=== PATIENT | female | born 1995 ===

== ENCOUNTER 2019-04-18 10:19 | Emergency (ER) | payer OTHER ==
[~2019-04-18] VITALS: Ht 170.2 cm; Wt 55.3 kg
== END 2019-04-18 12:12 | disposition home or self-care (01) ==
LOC: ER 10:19
DX: S71.122A Laceration with foreign body, left thigh, initial encounter (principal); W45.8XXA Other foreign body or object entering through skin, initial encounter; Y93.89 Activity, other specified; Y92.89 Other specified places as the place of occurrence of the external cause; Y99.8 Other external cause status